=== PATIENT | female | born 1985 | race African-American/Black ===

== ENCOUNTER 2020-10-06 22:20 | Emergency (ER) | payer OTHER ==
[~2020-10-06] VITALS: Ht 165.1 cm; Wt 49.9 kg
[2020-10-06 22:33] VITALS: BP 105/72
[2020-10-06] MEDS ORDERED: HYDROCODON-ACE1 EAC8 PO (23:41)
== END 2020-10-07 00:02 | disposition home or self-care (01) ==
LOC: M.ERS 22:20
DX: S89.81XA Other specified injuries of right lower leg, initial encounter (principal); M25.461 Effusion, right knee; X50.9XXA Other and unspecified overexertion or strenuous movements or postures, initial encounter; Y93.89 Activity, other specified; Y92.89 Other specified places as the place of occurrence of the external cause; Y99.8 Other external cause status